=== PATIENT | male | born 1945 | race Caucasian/White ===

== ENCOUNTER 2021-01-06 07:24 | Outpatient (CLI) | payer MEDICARE, BC, SELFPAY ==
--- NOTE | ~2021-01-06 | CT_ITS ---
EXAMINATION: CT abdomen pelvis w con INDICATION: Prostate cancer TECHNIQUE: Computed tomographic images of the abdomen and pelvis were obtained after the administrati on of 100 cc of Omnipaque 350 intravenous contrast. The dose-length product (DLP) was 967.20 mGy-cm. Automated exposure control and iterative reconstruction technique were employed. COMPARISON: None available FINDINGS: Minimal dependent atelectasis is present in the lung bases. The heart size is normal. The s pleen, pancreas, gallbladder, and adrenal glands are normal. There is a 4.1 x 3.3 cm heterogeneously enhancing lesion in liver segment VII. Cysts of the kidneys measure up to 2.2 cm on the left. No path ologically enlarged abdominal or pelvic lymph nodes are identified. There is no free intraperitoneal gas or evidence of bowel obstruction. Colonic diverticulosis is present without evidence of diverticu litis. There is a moderate-sized fat-containing umbilical hernia. There is moderate to severe lumbar spondylosis. IMPRESSION: 1. Indeterminate lesion of the right hepatic lobe. Follow-up MRI without and with contrast is recomme nded. Reviewed, dictated and finalized at location A. IMPRESSION: 1. Indeterminate lesion of the right hepatic lobe. Follow-up MRI without and wi th contrast is recommended.
--- NOTE | ~2021-01-06 | NM_ITS ---
EXAMINATION: NM bone scan whole body EXAM DATE: 01/06/2021 10:58 INDICATION: Prostate cancer. TECHNIQUE: Bone scan was performed after injection of25.2 mCi technetium 99 HDP and planar whole bod y images were obtained. COMPARISON: Correlation made to CT abdomen pelvis same date. FINDINGS: Focus of slightly increased activity within the right T6 rib posteriorly and T7 rib postero laterally. The right 7th rib was imaged image on CT scan and there is no correlate on that study, no osteoblastic lesion identified in this location. There is increased activity along the left mid cervical facet joints probably osteoarthritis. Scatter ed polyarticular osteoarthritis. There is otherwise expected uptake within the osseous structures, so me renal and bladder physiologic activity. Evidence of knee replacement hardware. IMPRESSION: 1. Small foci increased activity in right T6, T7 ribs, without correlate on CT. Consider 6 month foll ow-up PSA/bone scan. 2. Left mid cervical facet activity probably osteoarthritis. Evidence of other polyarticular osteoart hritis. Reviewed, dictated and finalized at location B. IMPRESSION: 1. Small foci increased activity in right T6, T7 ribs, without correlate on CT. Consider 6 month follow-up PSA/bone scan. 2. Left mid cervical facet activity probably osteoarthritis. Evidence of other polyarticular osteoarthritis.
[2021-01-06 08:00] LABS: Estimated Glomerular Filt Rate 54
== END 2021-01-06 07:25 | disposition home or self-care (01) ==
LOC: ANHIMG 07:29
PROVIDERS: PCP Internal Medicine; Visit Provider Urology
DX: C61 Malignant neoplasm of prostate (principal)
CPT/HCPCS: 74177; 78306; A9561; Q9967

== ENCOUNTER 2021-01-14 13:41 | Outpatient (CLI) | payer MEDICARE, BC, SELFPAY ==
--- NOTE | ~2021-01-14 | CT_ITS ---
EXAMINATION: CT abdomen wo/w con INDICATION: Indeterminate liver mass TECHNIQUE: Computed tomographic images of the abdomen were obtained prior to and following the admini stration of 100 cc of Omnipaque 350 intravenous contrast in the arterial and portal venous phases. Th e dose-length product (DLP) was 2579.16 mGy-cm. Automated exposure control and iterative reconstructi on technique were employed. COMPARISON: 01/06/2021 FINDINGS: Minimal dependent atelectasis is present in the lung bases. There are nodules measuring 5 m m and 3 mm in the left lower lobe. The heart size is normal. There is a 4.1 x 3.2 cm hypoattenuating lesion in liver segment VII which demonstrates slow progressive enhancement after contrast administra tion. The mass displaces, rather than invades, the right portal vein. No additional liver lesion is i dentified. The spleen, pancreas, gallbladder, and left adrenal gland are normal. There is a 6 mm salvatore niki of the right adrenal gland. Cysts of the kidneys measure up to 2.2 cm on the left. There are no p athologically enlarged abdominal lymph nodes. There is no free intraperitoneal gas or evidence of bow el obstruction. The appendix is normal. There is a fat-containing umbilical hernia. IMPRESSION: 1. Probably benign right hepatic lobe lesion which may reflect an atypical hemangioma. Follow-up CT o r MRI without and with contrast in six months is recommended. 2. Left lower lobe nodules measuring up to 5 mm. Attention on follow-up examination is recommended. Reviewed, dictated and finalized at location B. IMPRESSION: 1. Probably benign right hepatic lobe lesion which may reflect an atypical keagan ngioma. Follow-up CT or MRI without and with contrast in six months is recommen ded. 2. Left lower lobe nodules measuring up to 5 mm. Attention on follow-up examina tion is recommended.
== END 2021-01-14 13:42 | disposition home or self-care (01) ==
PROVIDERS: PCP Internal Medicine; Visit Provider Urology
DX: K76.9 Liver disease, unspecified (principal); R91.8 Other nonspecific abnormal finding of lung field
CPT/HCPCS: 74170; Q9967

== ENCOUNTER 2022-04-09 09:20 | Outpatient (CLI) | payer MEDICARE, BC, SELFPAY ==
--- NOTE | 2022-04-09 09:35 | ECG_ITS ---
Measurements Intervals [place] Rate: 58 P: 22 UT: 172 QRS: -22 QRSD: 125 T: 24 QT: 403 QTc: 399 Interpretive Statements SINUS BRADYCARDIA INTRAVENTRICULAR CONDUCTION DELAY BORDERLINE T WAVE ABNORMALITY- INFERIOR LEADS BORDERLINE ECG NO PREVIOUS ECG AVAILABLE FOR COMPARISON Electronically Signed On 04-09-2022 9:43:40 [employer] by Huey Keith D.O.
== END 2022-04-09 09:21 | disposition home or self-care (01) ==
LOC: ANHCARD 09:23
PROVIDERS: PCP Internal Medicine; Visit Provider Internal Medicine
DX: I45.9 Conduction disorder, unspecified (principal); R94.31 Abnormal electrocardiogram [ECG] [EKG]
CPT/HCPCS: 93005

== ENCOUNTER 2023-12-09 11:06 | Outpatient (CLI) | payer MEDICARE, BC, SELFPAY ==
--- NOTE | ~2023-12-09 | XR_ITS ---
EXAMINATION: XR chest 2V 12/09/2023 11:27 INDICATION: Dyspnea PROCEDURE: 2 view chest COMPARISON: No prior studies for comparison. FINDINGS: The lungs are clear. The cardiomediastinal silhouette is within normal limits. There are no pleural effusions. There is no pneumothorax suspected. IMPRESSION: 1: NO ACUTE CARDIOPULMONARY DISEASE. Reviewed, dictated and finalized at location B.
== END 2023-12-09 11:07 | disposition home or self-care (01) ==
PROVIDERS: PCP Internal Medicine; Visit Provider Internal Medicine
DX: R06.00 Dyspnea, unspecified (principal)
CPT/HCPCS: 71046

== ENCOUNTER 2023-12-13 07:17 | Outpatient (RCR) | payer MEDICARE, BC, SELFPAY ==
[2023-12-13] VITALS (8 sets, daily range): BP systolic 111–130; BP diastolic 59–76; PULSE 61–82; RESP 16–18; TEMP 36.3–36.7; O2SAT 97–100
[2023-12-13 07:37] LABS: Hematocrit 21.6 % (42.0-52.0)
[2023-12-13 07:40] LABS: Hemoglobin 6.2 g/dL (14.0-18.0)
[2023-12-13] MEDS: SODIUM CHLORIDE 0.9% IV 250 ML 30 ML IV CONT (08:55)
[2023-12-13] MEDS: FAMOTIDINE 20 MG TABLET PO (08:57)
[2023-12-13 14:28] LABS: Hematocrit 26.7 % (42.0-52.0)
== END 2024-03-12 23:59 | disposition home or self-care (01) ==
LOC: ANHCPCTRAN 07:17
PROVIDERS: PCP Internal Medicine; Visit Provider Internal Medicine
DX: D64.9 Anemia, unspecified (principal)
CPT/HCPCS: 36415; 36430; 85014; 85018; 86850; 86900; 86901; 86923; A9270; J7050; P9016

== ENCOUNTER 2024-01-04 03:30 | Day surgery (SDC) | payer MEDICARE, BC, SELFPAY ==
[2023-12-28 11:00] VITALS: BMI 29.2
--- NOTE | 2023-12-31 13:16 | PC.NURSE ---
Spoke with patient_ regarding medication Eliquis. Pt. verbalizes understanding that the last dose of eliquis to be taken on _01/01/2024 and the Endoscopist will instruct them when to restart after the procedure.
[2024-01-04 11:58] VITALS: BMI 29.0
[2024-01-04 11:59] VITALS: BP 125/79; PULSE 68; RESP 18; TEMP 36; O2SAT 96
[2024-01-04] MEDS: LACTATED RINGERS 1,000 ML 150 ML IV CONT (12:05)
--- NOTE | 2024-01-04 12:19 | P.PNAN_ITS ---
Anes - Initial Pre Proc Eval Procedure: Operation Date: 01/04/24 15:00 Proposed Procedures p Colonoscopy - Clint Nowak MD Date/Time: 01/04/24 12:19 Surgeon: Clint Nowak MD Pre Op Diagnosis: Positive cologuard Patient Data Age: 78 Gender: M Height: 1.8 m Weight: 94.4 kg Last Vital Signs Temp 36.0 C L 01/04/24 11:59 Pulse 68 01/04/24 11:59 Resp 18 01/04/24 11:59 BP 125/79 01/04/24 11:59 Pulse Ox 96 01/04/24 11:59 O2 Del Method Room Air 01/04/24 11:59 Allergies Allergy/AdvReac Type Severity Reaction Status Date / Time bee venom protein (honey bee) Allergy Swelling Verified 01/04/24 11:57 Home Medications Medication Instructions Recorded Confirmed Type epinephrine 0.3 mg/0.3 mL 0.3 mg (0.3 mL) IM ONCE #1 ea 06/27/21 12/28/23 Rx injection, auto-injector apixaban 5 mg tablet (Eliquis) 5 mg PO BID 12/13/23 01/04/24 History diltiazem HCl 120 mg 120 mg PO DAILY 12/13/23 01/04/24 History capsule,extended release 24 hr dronedarone 400 mg tablet (Multaq) 400 mg PO BID 12/13/23 01/04/24 History ferrous sulfate 27 mg iron tablet 27 mg PO DAILY 12/28/23 01/04/24 History Patient hx anesthesia problems: none Family hx anesthesia problems: none Results Review: All pre-operative results and documents have been reviewed as part of the pre- operative evaluation. [facility] Past Medical History Medical History Back pain with history of spinal surgery Elevated prostate specific antigen [PSA] Osteoarthritis Prostate cancer Family History Family History Father Family history of Alzheimer's disease Mother Family history of dementia Social History Social History Smoking packs per day: 1 Smoking cigarettes per day: 20.0 Years smoked: 16 Smoking pack-years: 16.00 Smoking status: Former smoker Tobacco type: cigarettes Second hand tobacco smoke exposure: No Alcohol intake: current Drinks per week: 3 Substance use: never Substance use type: does not use Lack of Transportation: No Lack of Food: Never True Current Housing: I Have Housing Concerned About Future Housing: No Difficulty Paying Gas/Electric Bills: No Difficulty Paying for Meds: No Currently Unemployed: No Education: Associate Degree Living arrangements: with family Spiritual care concerns: No Anes - Eval Final PreProcedure Day of Procedure 01/04/24 12:19 Patient weight: overweight Heart: regular rate and rhythm Lungs: clear to auscultation Airway: Mallampati scale class II Neurological: alert and oriented Last oral intake: >/= 8 hours ASA classification: III Emergent: no Anesthetic plan: proceed Anesthesia type and monitoring: general GIVS and standard monitoring Results Review: All pre-operative results and documents have been reviewed as part of the pre- operative evaluation. Informed Consent: The patient's anesthetic plan and its attendant risks and benefits were discussed with the patient/family/POA. Questions were solicited and answers provided to the satisfaction of the patient/family/POA.
--- NOTE | 2024-01-04 12:24 | PM.HPGS ---
History of Present Illness History of Present Illness Consent: Risks, benefits, and alternatives have been discussed and questions answered. Patient agrees to proceed with procedure. Chief complaint: Positive cologuard Narrative: Medardo Parks is a 78 year old male here for first colonoscopy, + cologuard Review of Systems Review of Systems: All systems reviewed & are unremarkable except as noted in HPI and below PMFSH Past Medical History Medical History (Updated 01/04/24 @ 12:27 by Clint Nowak MD) Back pain with history of spinal surgery Elevated prostate specific antigen [PSA] Osteoarthritis Positive colorectal cancer screening using Cologuard test Prostate cancer Family History Family History Father Family history of Alzheimer's disease Mother Family history of dementia Social History Social History Smoking packs per day: 1 Smoking cigarettes per day: 20.0 Years smoked: 16 Smoking pack-years: 16.00 Smoking status: Former smoker Tobacco type: cigarettes Second hand tobacco smoke exposure: No Alcohol intake: current Drinks per week: 3 Substance use: never Substance use type: does not use Lack of Transportation: No Lack of Food: Never True Current Housing: I Have Housing Concerned About Future Housing: No Difficulty Paying Gas/Electric Bills: No Difficulty Paying for Meds: No Currently Unemployed: No Education: Associate Degree Living arrangements: with family Spiritual care concerns: No Meds Home Medications and Allergies Home Medications Medication Instructions Recorded Confirmed Type epinephrine 0.3 mg/0.3 mL 0.3 mg (0.3 mL) IM ONCE #1 ea 06/27/21 12/28/23 Rx injection, auto-injector apixaban 5 mg tablet (Eliquis) 5 mg PO BID 12/13/23 01/04/24 History diltiazem HCl 120 mg 120 mg PO DAILY 12/13/23 01/04/24 History capsule,extended release 24 hr dronedarone 400 mg tablet (Multaq) 400 mg PO BID 12/13/23 01/04/24 History ferrous sulfate 27 mg iron tablet 27 mg PO DAILY 12/28/23 01/04/24 History Allergies Allergy/AdvReac Type Severity Reaction Status Date / Time bee venom protein (honey bee) Allergy Swelling Verified 01/04/24 11:57 Vital Signs Vital Signs - 24 hr 01/04/24 11:59 Temperature 96.8 F L Pulse Rate 68 Respiratory Rate 18 Blood Pressure 125/79 Pulse Oximetry 96 Oxygen Delivery Room Air Exam Const: General: comfortable and no acute distress HENMT: Face/Nose/Sinus: Normal nares present Eyes: General: appearance normal, both eyes and all related structures Neck: Neck: no JVD Resp: Auscultation: clear to auscultation bilaterally Cardio: Rate: regular rate Rhythm: regular rhythm GI: Inspection: non-distended GI Palp: Yes Soft to palpation Skin: General skin exam: normal color Neuro: General: gait normal Speech: normal speech Extrem: General: normal to inspection Psych: Mental Status: mental status grossly normal Assessment and Plan Assessment and plan (1) Positive colorectal cancer screening using Cologuard test: Code(s): R19.5 - Other fecal abnormalities Status: Acute Assessment and Plan: colonoscopy
[2024-01-04 12:48] VITALS: BP 104/71; PULSE 59; RESP 16; O2SAT 98
[2024-01-04 12:58] VITALS: BP 111/75; PULSE 58; RESP 16; O2SAT 99
[2024-01-04 13:08] VITALS: BP 109/75; PULSE 56; RESP 20; O2SAT 96
== END 2024-01-04 13:22 | disposition home or self-care (01) ==
PROVIDERS: PCP Internal Medicine; Visit Provider Internal Medicine Gastroenterology
PROC: 0DJD8ZZ Inspection of Lower Intestinal Tract, Via Natural or Artificial Opening Endoscopic (ICD-10-PCS; CPT 45378; principal; 2024-01-04 15:00)
DX: K57.30 Diverticulosis of large intestine without perforation or abscess without bleeding (principal); Q27.33 Arteriovenous malformation of digestive system vessel; Z79.01 Long term (current) use of anticoagulants; Z98.890 Other specified postprocedural states; Z98.1 Arthrodesis status; Z87.891 Personal history of nicotine dependence; Z85.46 Personal history of malignant neoplasm of prostate
CPT/HCPCS: 45382; J2704; J7120